=== PATIENT | female | born 1975 | race Caucasian/White ===

== ENCOUNTER 2020-11-17 08:17 | Emergency (ER) | payer OTHER ==
[~2020-11-17 08:17] MED LIST: COLACE100 MG PO; COZAAR50 MG PO; FEOSOL325 MG PO; IBUPROFEN800 MG PO; MOTRIN600 MG PO; PERCOCET 5-3251 EACH PO
[2020-11-17 09:03] LABS: BASOPHIL 0.5 % (0-2); EOSINOPHIL 0.9 % (0-5); HGB 14.7 g/dl (12.5-16.0); LYMPHOCYTE 33.2 % (15-48); MCH 27.5 pg (25.0-31.0); MCHC 32.7 g/dL (32.0-36.0); MCV 84.1 fL (78.0-100.0); MONOCYTE 6.1 % (0-12); MPV 9.1 fL (6.0-9.5); NEUTROPHIL 59.1 % (41-80); NRBC 0; PLT 201 K/uL (150-400); RBC 5.35 M/uL (4.20-5.40); RDW 13.3 % (11.5-14.0); WBC 6.4 K/uL (4.0-10.5)
[2020-11-17 09:04] LABS: ALBUMIN 3.6 g/dL (3.4-5.0); BILIRUBIN - TOTAL 0.6 mg/dL (0.2-1.0); BUN/CREAT RATIO (CALC) 22.2 RATIO; CREATININE 0.72 mg/dL (0.51-0.95); GLOBULIN (CALCULATION) 2.7 g/dL; POTASSIUM 3.7 mmol/L (3.5-5.1); TOTAL PROTEIN 6.3 g/dL (6.4-8.2)
[2020-11-17 09:12] LABS: CKMB 0.6 ng/mL (0.0-3.6)
[2020-11-17] MEDS ORDERED: NAPROXEN500 MG PO (10:50)
== END 2020-11-17 11:04 | disposition home or self-care (01) ==
LOC: FER 08:17
PROVIDERS: Emergency Medicine
DX: M94.0 Chondrocostal junction syndrome [Tietze] (principal); Z88.2 Allergy status to sulfonamides
CPT/HCPCS: 36415; 71046; 80053; 82553; 84484; 85025; 93005

== ENCOUNTER 2020-12-27 11:08 | Emergency (ER) | payer OTHER ==
[~2020-12-27 11:08] MED LIST changes: +NAPROXEN500 MG PO
[2020-12-27 12:04] LABS: BASOPHIL 0.1 % (0-2); EOSINOPHIL 0 % (0-5); HCT 45.4 % (37.0-47.0); LYMPHOCYTE 17.5 % (15-48); MCH 27.7 pg (25.0-31.0); MCV 83.9 fL (78.0-100.0); MPV 9.3 fL (6.0-9.5); NRBC 0; PLT 162 K/uL (150-400); RBC 5.41 M/uL (4.20-5.40); RDW 13.5 % (11.5-14.0); WBC 6.7 K/uL (4.0-10.5)
[2020-12-27 12:57] LABS: PRO-BNP 22 pg/mL (<125)
[2020-12-27 13:11] LABS: LACTIC ACID 1.4 mmol/L (0.4-1.9)
[2020-12-27 13:44] LABS: ALBUMIN 3.2 g/dL (3.4-5.0); BILIRUBIN - TOTAL 0.6 mg/dL (0.2-1.0); BUN/CREAT RATIO (CALC) 17.1 RATIO; C-REACTIVE PROTEIN 3.8 mg/dL (<=0.90); CREATININE 0.7 mg/dL (0.51-0.95); GLOBULIN (CALCULATION) 3.6 g/dL; POTASSIUM 4.2 mmol/L (3.5-5.1); TOTAL PROTEIN 6.8 g/dL (6.4-8.2)
[2020-12-27] MEDS ORDERED: MEDROL 4MG DOSEP4 MG PO (17:02)
[2020-12-27] MEDS ORDERED: VENTOLIN HFA IN18 GM INH (17:02)
== END 2020-12-27 17:15 | disposition home or self-care (01) ==
LOC: FER 11:08
PROVIDERS: Emergency Medicine
DX: U07.1 COVID-19 (principal); J12.82 Pneumonia due to coronavirus disease 2019; I10 Essential (primary) hypertension; Z88.2 Allergy status to sulfonamides; Z79.899 Other long term (current) drug therapy
CPT/HCPCS: 36415; 71045; 80053; 82728; 83540; 83550; 83605; 83615; 83735; 83880; 84145; 84484; 85025; 86140; 93005; J1100; J2405; J7030; M0243; Q0244